=== PATIENT | female | born 1950 | race American Indian/Alaskan Native ===

== ENCOUNTER 2023-11-16 08:49 | Outpatient (AMB) | payer MEDICARE, SELFPAY ==
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
== END 2023-11-16 09:55 | disposition home or self-care (01) ==
PROVIDERS: PCP Nurse Practitioner Primary Care; Referring Provider Physician Assistant Surgical; Visit Provider Physician Assistant
DX: M54.2 Cervicalgia (principal)
CPT/HCPCS: 99204

== ENCOUNTER 2023-11-16 08:49 | Outpatient (REF) | payer MEDICARE, SELFPAY ==
--- NOTE | ~2023-11-16 | XR_ITS ---
EXAMINATION:XR cervical spine 4V CLINICAL INFORMATION: Flexion and extension COMPARISON: None TECHNIQUE: Frontal lateral, flexion and extension and swimmer's view. Total of 5 views FINDINGS: 7 cervical vertebrae identified maintaining normal height , anterior fusion of C4-C5 and C5-C6, hardware intact. Vertebral bodies are fused.. Narrowing of intervertebral disc spaces at C2-C3, C3-C4, C6-C7 and C7-T1 suggests underlying moderate to severe degenerative disc disease. No prevertebral soft tissue swelling. Surrounding soft tissue and included lung apices are clear. Surrounding paravertebral soft tissues unremarkable. Included lung apices are clear. XR/XR cervical spine 4V IMPRESSION: * Anterior fusion of C4-C5 and C5-C6, hardware intact. * Narrowing of intervertebral disc spaces suggest underlying degenerative disc disease. * No fracture.
== END 2023-11-16 08:50 | disposition home or self-care (01) ==
LOC: HO.HOSX 08:49
PROVIDERS: PCP Nurse Practitioner Primary Care; Visit Provider Physician Assistant
DX: M54.2 Cervicalgia (principal); Z98.1 Arthrodesis status
CPT/HCPCS: 72050; 99202